=== PATIENT | male | born 1945 | race Caucasian/White ===

== ENCOUNTER 2019-09-15 10:57 | Outpatient (CLI) | payer MEDICARE, OTHER, SELFPAY ==
--- NOTE | ~2019-09-15 | XR_ITS ---
XR ankle LT min 3V DATE: 09/15/2019 11:50 INDICATION: Twisting injury 3 weeks ago. Left ankle pain and swelling. TECHNIQUE: 4 views COMPARISON: None FINDINGS: Prominent plantar calcaneal enthesopathy. There is soft tissue swelling of the ankle, greater laterally. No fracture or dislocation of the ankl e or disruption of the ankle mortise. No periosteal reaction or bone destruction. IMPRESSION: Ankle soft tissue swelling Plantar calcaneal enthesopathy Reviewed, dictated and finalized at location A.
[2019-09-15 11:13] LABS: Basophils Absolute Auto 0.03 K/mm3 (0.00-0.10); Basophils Percent Auto 0.6 % (0.0-1.0); Eosinophils Absolute Auto 0.23 K/mm3 (0.02-0.50); Eosinophils Percent Auto 4.8 % (1.0-6.0); Hematocrit 39.8 % (37.0-46.0); Hemoglobin 13.5 g/dL (12.4-15.3); Immature Granulocyte Absolute 0.01 K/mm3 (0.00-0.00); Immature Granulocyte Percent A 0.2 % (0.0-0.0); Lymphocytes Absolute Auto 1.61 K/mm3 (1.10-4.50); Lymphocytes Percent Auto 33.5 % (18.0-42.0); Mean Corpuscular HGB Conc 33.9 g/dL (32.0-36.0); Mean Corpuscular Hemoglobin 29.7 pg (27.0-31.0); Mean Corpuscular Volume 87.5 fL (78.0-102.0); Mean Platelet Volume 9.7 fl (8.7-11.0); Monocytes Absolute Auto 0.35 K/mm3 (0.10-0.90); Monocytes Percent Auto 7.3 % (2.0-11.0); Neutrophils Absolute Auto 2.6 K/mm3 (1.7-7.2); Neutrophils Percent Auto 53.6 % (50.0-70.0); Platelet Count Result 141 K/mm3 (150-420); Red Blood Count 4.55 M/mm3 (4.70-6.10); Red Cell Distribution Width 12.5 % (11.6-14.4); White Blood Count 4.8 K/mm3 (4.8-10.8)
[2019-09-15 11:26] LABS: Anion Gap 11.6 mmol/L (7-16); Blood Urea Nitrogen 16 mg/dL (7-18); Calcium 9.5 mg/dL (8.5-10.1); Carbon Dioxide 29 mmol/L (21-32); Chloride 107 mmol/L (98-108); Estimated Glomerular Filt Rate > 60; Glucose 96 mg/dL (70-99); Osmolality Calculated 297 mOsm/kg (285-295); Potassium 4.6 mmol/L (3.5-5.1); Sodium 143 mmol/L (136-145); Uric Acid 5.2 mg/dL (3.5-7.2)
[2019-09-15 11:28] LABS: CRP < 0.2 mg/dL (0.0-0.9)
[2019-09-15 13:07] LABS: Erythrocyte Sedimentation Rate 30 mm/hr (0-20)
== END 2019-09-15 10:58 | disposition home or self-care (01) ==
PROVIDERS: PCP Internal Medicine; Visit Provider Internal Medicine
DX: M25.572 Pain in left ankle and joints of left foot (principal); M25.472 Effusion, left ankle
CPT/HCPCS: 36415; 73610; 80048; 84550; 85025; 85652; 86140

== ENCOUNTER 2019-12-23 10:57 | Outpatient (CLI) | payer MEDICARE, OTHER, SELFPAY ==
--- NOTE | ~2019-12-23 | US_ITS ---
EXAMINATION: US venous doppler [facility] EXAM DATE: 12/23/2019 11:44 INDICATION: left calf, foot swelling. TECHNIQUE: Multiple grayscale, color flow and Doppler images of the left lower extremity deep venous system were obtained and reviewed. There is no prior study for comparison. FINDINGS: The left common femoral, femoral and profunda veins demonstrate normal color flow, respirat ory variation, augmentation and compressibility. Compressibility, color flow confirmed within the le ft popliteal, posterior tibial, peroneal, and greater saphenous veins. IMPRESSION: No left lower extremity deep venous thrombosis. Reviewed, dictated and finalized at location A.
[2019-12-23 11:18] LABS: Basophils Absolute Auto 0.03 K/mm3 (0.00-0.10); Basophils Percent Auto 0.7 % (0.0-1.0); Eosinophils Absolute Auto 0.21 K/mm3 (0.02-0.50); Immature Granulocyte Absolute 0.01 K/mm3 (0.00-0.00); Immature Granulocyte Percent A 0.2 % (0.0-0.0); Lymphocytes Absolute Auto 1.46 K/mm3 (1.10-4.50); Lymphocytes Percent Auto 34.6 % (18.0-42.0); Mean Corpuscular HGB Conc 33.3 g/dL (32.0-36.0); Mean Corpuscular Hemoglobin 29.3 pg (27.0-31.0); Mean Corpuscular Volume 87.8 fL (78.0-102.0); Mean Platelet Volume 10.1 fl (8.7-11.0); Monocytes Absolute Auto 0.33 K/mm3 (0.10-0.90); Monocytes Percent Auto 7.8 % (2.0-11.0); Neutrophils Absolute Auto 2.2 K/mm3 (1.7-7.2); Neutrophils Percent Auto 51.7 % (50.0-70.0); Platelet Count Result 151 K/mm3 (150-420); Red Blood Count 4.44 M/mm3 (4.70-6.10); Red Cell Distribution Width 12.6 % (11.6-14.4); White Blood Count 4.2 K/mm3 (4.8-10.8)
[2019-12-23 11:34] LABS: Alanine Aminotransferase 31 U/L (16-63); Albumin Level 3.8 g/dL (3.4-5.0); Alkaline Phosphatase 70 U/L (46-116); Anion Gap 11.2 mmol/L (7-16); Aspartate Amino Transferase 27 U/L (15-37); Bilirubin,Total 0.8 mg/dL (0.00-1.00); Blood Urea Nitrogen 16 mg/dL (7-18); CRP 0.9 mg/dL (0.0-0.9); Calcium 8.9 mg/dL (8.5-10.1); Carbon Dioxide 29 mmol/L (21-32); Chloride 106 mmol/L (98-108); Estimated Glomerular Filt Rate > 60; Glucose 89 mg/dL (70-99); Osmolality Calculated 294 mOsm/kg (285-295); Potassium 4.2 mmol/L (3.5-5.1); Sodium 142 mmol/L (136-145); Total Protein 7.7 g/dL (6.4-8.2); Uric Acid 5.9 mg/dL (3.5-7.2)
[2019-12-23 12:26] LABS: Erythrocyte Sedimentation Rate 32 mm/hr (0-20)
== END 2019-12-23 10:58 | disposition home or self-care (01) ==
PROVIDERS: PCP Internal Medicine; Visit Provider Internal Medicine
DX: M79.89 Other specified soft tissue disorders (principal); M79.672 Pain in left foot; M79.662 Pain in left lower leg
CPT/HCPCS: 36415; 80053; 84550; 85025; 85652; 86140; 93971

== ENCOUNTER 2020-09-05 12:16 | Outpatient (CLI) | payer MEDICARE, OTHER, SELFPAY ==
--- NOTE | ~2020-09-05 | US_ITS ---
EXAMINATION: US carotid duplex BI DATE: 09/05/2020 12:46 INDICATION: Left carotid bruit. TECHNIQUE: Grayscale, color Doppler, and pulsed Doppler images of the cervical carotid arteries were obtained. The degree of vessel stenosis is placed in one of the following categories: normal, <50%, 5 0-69%, >=70% but less than near-occlusion, near-occlusion, or total occlusion. Note that percent sten osis relative to normal distal artery lumen diameter is indirectly measured from velocity measurement s as described by Tony, et al. Radiology 2003; 229:340-346. COMPARISON: None. FINDINGS: RIGHT: The right common carotid artery (CCA) peak systolic velocity (PSV) is 100 cm/s. The right internal ca rotid artery (ICA) PSV is 88 cm/s. The right ICA end-diastolic velocity (EDV) is 10 cm/s. The right I CA/CCA PSV ratio is 0.9. Grayscale and color Doppler images yield an estimate of <50% diameter reduct ion from plaque in the ICA. There is antegrade flow in the right vertebral artery. LEFT: The left CCA PSV is 76 cm/s. The left ICA PSV is 107 cm/s. The left ICA EDV is 18 cm/s. The left ICA/ CCA PSV ratio is 1.4. Grayscale and color Doppler images yield an estimate of <50% diameter reduction from plaque in the ICA. There is antegrade flow in the left vertebral artery. IMPRESSION: 1. <50% stenosis in the right internal carotid artery. 2. <50% stenosis in the left internal carotid artery. Reviewed, dictated and finalized at location A.
== END 2020-09-05 12:17 | disposition home or self-care (01) ==
LOC: CHSIMG 12:18
PROVIDERS: PCP Internal Medicine; Visit Provider Internal Medicine
DX: R09.89 Other specified symptoms and signs involving the circulatory and respiratory systems (principal)
CPT/HCPCS: 93880

== ENCOUNTER 2023-07-22 10:05 | Outpatient (CLI) | payer MEDICARE, OTHER, SELFPAY ==
--- NOTE | 2023-07-22 10:12 | ECHO_ITS ---
Patient Info Name: Darryl Salazar Age: 78 years : 1945 Gender: Male Ht: 70 in Wt: 165 lbs BSA: 1.93 m2 HR: 75 bpm BP: 170 / 95 mmHg Heart Rhythm: Sinus Rhythm Technical Quality: Good Exam Date: 07/22/2023 11:06 AM Exam Location: Echo Lab Patient Status: Outpatient Admit Date: 07/22/2023 Staff Ordering Physician: Davis Zelaya MD Ladle Cleaner: Jon St RDCS Attending Provider: Davis Zelaya MD Referring Physician: Garcia ASHLEY; Exam Type: CA echo doppler color flow Study Info Indications - ABN EKG Complete two-dimensional, color flow and Doppler transthoracic echocardiogram is performed. Summary 1. Complete two-dimensional, color flow and Doppler transthoracic echocardiogram is performed. 2. Left ventricular chamber dimension is normal. 3. Left ventricular systolic function is normal, estimated at 60-65%. 4. The left ventricular diastolic function is grade I diastolic dysfunction. 5. E/e' 21 is elevated. 6. There is mild aortic valve sclerosis. 7. There is trace mitral valve regurgitation. 8. There is mild tricuspid valve regurgitation. 9. No pulmonary hypertension, estimated pulmonary arterial systolic pressure is 36 mmHg. Left Ventricle E/e' 21 is elevated. Left ventricular chamber dimension is normal. Left ventricular systolic function is normal, estimated at 60-65%. The left ventricular diastolic function is grade I diastolic dysfunction. Right Ventricle Right ventricular systolic function is normal and with normal TAPSE 3.1 cm. Right ventricular chamber dimension is normal. Left Atria Left atrial chamber dimension is normal. Right Atria Right atrial chamber dimension is normal. Aortic Valve The aortic valve is trileaflet. There is mild aortic valve sclerosis. There is no aortic valve stenosis. There is no aortic valve regurgitation. Pulmonic Valve There is no pulmonic regurgitation. Mitral Valve There is no mitral valve stenosis. There is trace mitral valve regurgitation. Tricuspid Valve There is mild tricuspid valve regurgitation. No pulmonary hypertension, estimated pulmonary arterial systolic pressure is 36 mmHg. Pericardium/Pleural There is no pericardial effusion. Inferior Vena Cava Normal inferior vena cava with >50% collapse upon inspiration consistent with normal right atrial pressure, 5 mmHg. Aorta The aortic root size at the sinus of Valsalva is normal. Left Ventricular Outflow Tract Name Value Normal LVOT 2D LVOT Diameter 2.1 cm LVOT Doppler LVOT Peak Velocity 117 cm/s LVOT Peak Gradient 6 mmHg LVOT Mean Gradient 4 mmHg LVOT VTI 29 cm LVOT VTI/AV VTI Ratio 1.0 LVOT Stroke Volume 98 ml Pulmonic Valve Name Value Normal RVOT Doppler RVOT Peak Gradient 2 mmHg PV Doppler -----
== END 2023-07-22 10:06 | disposition home or self-care (01) ==
LOC: CHSIMG 10:08
PROVIDERS: PCP Internal Medicine; Visit Provider Internal Medicine
DX: R94.31 Abnormal electrocardiogram [ECG] [EKG] (principal); R01.1 Cardiac murmur, unspecified; I08.2 Rheumatic disorders of both aortic and tricuspid valves
CPT/HCPCS: 93306

== ENCOUNTER 2024-10-27 16:49 | Emergency (ER) | payer MEDICARE, OTHER, SELFPAY ==
--- NOTE | ~2024-10-27 | XR_ITS ---
3 VIEWS LUMBAR SPINE Ordering provider: Edy Rivera MD History: . lbp . Comparison: None. FINDINGS: VERTEBRAL BODIES: No visible fracture or subluxation. Degenerative changes of the spine. Mild dextros coliosis. DISK SPACES: Narrowing of the disc L3-L4, L4-L5 and L5-S1. SOFT TISSUES: Atherosclerotic changes of aorta. IMPRESSION: No acute osseous abnormality lumbar spine. Multilevel degenerative disc disease. Reviewed, dictated and finalized at location A.
[2024-10-27 16:49] VITALS: BP 181/85; PULSE 70; RESP 18; TEMP 37.3; O2SAT 94
--- NOTE | 2024-10-27 16:52 | ED_ITS ---
HPI - Back Pain/Injury General Chief Complaint: Back Pain/Injury Stated Complaint: back pain Time Seen by Provider: 10/27/24 16:52 Source: patient Mode of arrival: ambulatory Limitations: no limitations History of Present Illness HPI Narrative: Patient is a 79-year-old male with lower back pain for the past 3-4 days. No injury. He has been using crutches around the house to get around. He went to urgent care yesterday. He is here today for further evaluation and treatment. The pain is lower back. MD elicited complaint: back pain Pertinent past history: prior back pain Onset (ago): day(s) ( Three) Timing: constant Severity: moderate Pain scale (0-10): 6 Similar Symptoms Previously: Yes Quality: sharp Location: lumbar spine ( lower) Radiation: none Exacerbating factors: movement Relieving factors: immobilization Context: turning/twisting and bending Associated symptoms: denies other symptoms Treatments prior to arrival: NSAIDS and acetaminophen Work related injury: No Related Data Allergies Allergy/AdvReac Type Severity Reaction Status Date / Time No Known Allergies Allergy Verified 10/27/24 16:57 Review of Systems Review of Systems: All systems reviewed & are unremarkable except as noted in HPI and below Constitutional: Constitutional: Reports no additional constitutional complaints Eyes: Eyes: Reports no additional eye complaints ENT: Reports system reviewed and no additional complaints, except as documented Cardiovascular: Cardiovascular: Reports no additional cardiovascular complaints Respiratory: Respiratory: Reports no additional respiratory complaints Gastrointestinal: Gastrointestinal: Reports no additional gastrointestinal complaints Genitourinary: Genitourinary: Reports no additional male genitourinary complaints Musculoskeletal: Musculoskeletal: Reports no additional musculoskeletal complaints Integumentary/Breasts: Skin/Breast: Reports system reviewed and no additional complaints, except as docu Neurologic: Reports system reviewed and no additional complaints, except as documented Psychiatric: Psychiatric: Reports no additional psychiatric complaints Endocrine: Endocrine: Reports no additional endocrine complaints Hematologic/Lymphatic: Hematologic/Lymphatic: Reports no additional hematologic/lymphatic complaints Allergic/Immunologic: Allergic/Immunologic: Reports no additional allergic/immunologic complaints Exam Const: General: healthy appearing Nutritional Appearance: well nourished Orientation/consciousness: patient oriented x3 HENMT: Head: normal to inspection Ears: external ears normal Face/Nose/Sinus: Normal external nose present Eyes: Conjunctivae: conjunctivae normal Pupils: Equal, round and reactive pupils present EOM: EOMs intact bilaterally Neck: Neck: normal visual inspection Chest: Chest palpation & inspection: normal inspection of the chest Resp: Effort & Inspection: normal respiratory effort and not labored Auscultation: clear to auscultation bilaterally and no crackles Cardio: Rate: regular rate Rhythm: regular rhythm Heart sounds: no murmurs GI: Inspection: non-distended GI Palp: Yes Soft to palpation and No Tenderness to palpation present (GI) Auscultation: normal bowel sounds : General: Yes bladder normal to palpation Back/Spine/Pelvis: Back: no CVA tenderness Other: tender lower L4-L5 and L5-S1 region of the paraspinal muscles to palpation; suspect muscle spasms Skin: General skin exam: normal color Rashes: no rashes Wounds: no wounds Neuro: General: patient oriented x3 Cranial nerves: Yes Nystagmus not present Speech: normal speech Gait exam (Neuro): Normal gait present Extrem: General: normal to inspection Psych: Mental Status: mental status grossly normal Affect: normal affect Attitude: cooperative Course Vital Signs Vital signs: Vital Signs Temperature 37.3 C 10/27/24 16:49 Pulse Rate 70 10/27/24 16:49 Respiratory Rate 18 10/27/24 16:49 Blood Pressure 181/85 H 10/27/24 16:49 Pulse Oximetry 94 10/27/24 16:49 Oxygen Delivery Room Air 10/27/24 16:49 Temperature 37.3 C 10/27/24 16:49 Pulse Rate 58 L 10/27/24 18:30 Respiratory Rate 17 10/27/24 18:30 Blood Pressure 167/78 H 10/27/24 18:30 Pulse Oximetry 95 10/27/24 18:30 Oxygen Delivery Room Air 10/27/24 16:49 MDM - Back Pain/Injury MDM Narrative Medical decision making narrative: patient is a 79-year-old male with lower back pain for the past few days. He is here for further evaluation. We will get an x-ray. We will do Toradol. We will road test patient after feeling better. UA. Lab Data Attestation: I reviewed the patient's lab results. Lab results narrative: Urinalysis was negative for acute process Labs: Lab Results 10/27/24 Range/Units 18:10 Urine Color Light yellow (Yellow) Urine Appearance Clear (Clear) Urine pH 6.0 (5.0-8.0) Ur Specific [place] 1.010 (1.010-1.020) Urine Protein Negative (Negative) Urine Glucose (UA) Negative (Negative) Urine Ketones 1+ H (Negative) Ur Blood (Man) Negative (Negative) Urine Nitrate Negative (Negative) Urine Bilirubin Negative (Negative) Urine Urobilinogen 0.2 (0.2-1.0) mg/dL Leukocyte Esterase Rfl Negative (Negative) ROMMEL/UL Imaging Data Attestation: I personally reviewed and interpreted this imaging study as follows: Radiologist's impression: lumbar spine is negative for acute process Discharge Plan Discharge Clinical Impression: Lumbar radiculopathy Strain of lumbar region Qualifiers: Encounter type: initial encounter Qualified Code(s): S39.012A - Strain of muscle, fascia and tendon of lower back, initial encounter Patient Disposition: Home Condition: Stable Instructions: Sciatica (ED), Acute Low Back Pain (ED) Patient Language: Turkish Prescriptions: New prednisone 20 mg tablet 40 mg PO DAILY 3 Days Qty: 6 0RF hydrocodone-acetaminophen 5-325 mg tablet 1 tablet PO Q8H PRN (Reason: pain) Qty: 20 0RF Follow-up/Referrals: Davis Zelaya MD [Primary Care Provider] - Time of Disposition: 19:18
--- OUTSIDE RECORDS SUMMARY | 2024-10-27 16:52 | XMS_ITS | Continuity of Care Document ---
Author Organization [facility] Address [address] [place] [address] [place] [address] Phone Care Team Providers Care Zigzag Elastic Attacher Name Role Phone Gokul Dias MD Unavailable Unavailable Allergies, Adverse Reactions, Alerts Substance Reaction Status Criticality No Known Allergies Active No Inform ation Medications Medication Instructions Dosage Effective Dates (start - stop) Status Comments metformin 2000 mg ORAL TABLET - Active glimepiride 2 mg tablet take 1 tablet by oral route every day 2 MG - Active Procedures Procedure Date Fundus Photography W/ Report Refraction Eye Exam, New Patient Advance Directives Directive Yes / No Effective Date File Name No Information Encounters Encounter Description Practice Location Reason(s) For Visit Diagnoses Date Provider Providers Copied on Encounter [facility], [address] [place] [address] [address], [place], [place], [id number], [place] tel:[phone] [place] Professional CLIP RIVETER Complete Exam (chief complaint) Age-related nuclear cataract, bilateralType 2 diabetes mellitus without complicationsV itreous degeneration, left eyeAmblyopia of left eye 0 Arun Hodgson. [address], [facility] [place] A, [place], [place], [id number], [place]. tel:[phone] Referring Provider: Gokul Calix, [address], [place], [address] . tel:[phone] Family History Family Member Type Diagnosis Age At Onset No Information Payers Payer name Insurance type Covered green party ID Authoriza tion(s) Medicare [place] MB [id number] [facility] [id number] Social History Type Description Quantity Date Captured Comments Alcohol Use Details Caffeine Use Details Tobacco Use Status Current non-smoker 20 Smoking Status Never smoker Non-Smoking Tobacco Use Details : No Details Available : No Details Available Sex Male Chief Complaint And Reason For Visit From encounter dated '11/17/2019 08:15'. CLIP RIVETER Complete Exam (chief complaint). Description: The 74 year old male presents for evaluation of NPComplete Exam in the right eye and left eye. Hx Amblyopia OS, Strabismus. DM2, last A1c around 7.0,last tested 3-4 months ago, BS unknown, followed by Dr. Zelaya. Pt reports overall stable vision in current spec Rx. Pt reports OS feels like it is pulling out a little. Pt reports floaters OS when he looks up, but denies flashes and dark curtains OU. Reason For Referral Reason For Referral No Information Plan Of Treatment Date Type Action Status Patient Education Type 2 Diabetes: Care I nstructions completed History Of Present Illness Encounter Date Complaint History Of Prese nt Illness CLIP RIVETER Complete Exam The 74 year old male presents for evaluation of CLIP RIVETER Complete Exam in the right eye and left eye. Hx Amblyopia OS, Strabismus. DM2, last A1c around 7.0, last tested 3-4 months ago, BS unknown, followed by Dr. Zelaya. Pt reports overall stable vision in current spec Rx. Pt reports OS feels like it is pulling out a little. Pt reports floaters OS when he looks up, but denies flashes and dark curtains OU. Functional Status Date Functional Assessmen t No Information Instructions Date Instruction Additional Infor mation Impression/Plan Assessments Type Assessment Date assessment Age-related nuclear cataract, bi lateral assessment Type 2 diabetes mellitus without complications assessment Vitreous degeneration, left eye assessment Amblyopia of left eye 0 Patient Care Teams Name Effective Dates (start - stop) Status Members No Information
--- OUTSIDE RECORDS SUMMARY | 2024-10-27 16:52 | XMS_ITS | Clinical Summary ---
Author Organization [facility] Address [address] [place] [address] Phone Care Team Providers Care Executive Officer Special Warfare Team Name Role Phone Davis Zelaya MD Primary Care Provider + Allergies No known active allergies Medications metFORMIN (GLUCOPHAGE) 500 mg tablet Take 500 mg by mouth daily after supper. Active glimepiride (AMARYL) 2 mg tablet Take 2 mg by mouth daily with breakfast. 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 Social History Tobacco Use Types Packs/Day Years Used Date Smoking Tobacco: Never Smokeless Tobacco: Never Alcohol Use Standard Drinks/Week Comments Yes 0 (1 standard drink = 0.6 oz pur e alcohol) OCC BEER Sex and Gender Information Value Date Recorded Sex Assigned at Not on file Legal Sex Male 10:01 AM CDT Gender Identity Not on file Sexual Orientation Not on file Last Filed Vital Signs Vital Sign Reading Time Taken Comments Blood Pressure 168/73 05/12/2021 5:46 PM TRIAL EXAMINER Pulse 80 05/12/2021 5:46 PM TRIAL EXAMINER Temperature 36.3 C (97.4 F) 05/12/2021 5:46 PM TRIAL EXAMINER Respiratory Rate 16 05/12/2021 5:46 PM TRIAL EXAMINER Oxygen Saturation 97% 05/12/2021 5:46 PM TRIAL EXAMINER Inhaled Oxygen Concentration - - Weight 78.7 kg (173 lb 6.4 oz) 05/12/2021 12:42 PM TRIAL EXAMINER Height 177.8 cm (5' 10) 05/12/2021 12:42 PM TRIAL EXAMINER Body Mass Index 24.88 05/12/2021 12:42 PM TRIAL EXAMINER Plan of Treatment Health Maintenance Due Date Last Done Comments DTAP/TDAP/TD VACCINES (1 - Tdap) 1966 PNEUMOCOCCAL VACCINE 50+ YEARS (1 of 1 - PCV) 01/22/19 97 ZOSTER VACCINE (1 of 2) 1997 RSV VACCINE (60+ or ) (1 - 1-dose 75+ series) 2022 INFLUENZA VACCINE (#1) 2023 Medical Devices Implanted Type Area Diesel Truck Crane Operator Device Identifier Shelf Expiration Date Model / Serial / Lot Pin And 2 Screws Right: Hip Insurance MEDICARE PART A AND B [facility] [place] [address] Advance Directives For more information, please contact: [phone] * Full Code (Latest Code Status on File) Date Activated Date Inactivated Comments 05/12/2021 12:57 PM 05/12/2021 8:00 PM Care Teams Executive Officer Special Warfare Team Relationship Specialty Start Date End Date Davis Zelaya MD [address] [place] [address] PCP - General Internal Medicine 02/14/21
--- OUTSIDE RECORDS SUMMARY | 2024-10-27 16:52 | XMS_ITS | Clinical Summary ---
Author Organization [facility] [address] [facility] Address [address] [place] [address] Care Team Providers Care Turning Lathe Tender Name Role Phone Davis Zelaya MD Primary Care Provider [phone] Social History Tobacco Use Types Packs/Day Years Used Date Smoking Tobacco: Never Assessed Personal Safety Answer Date Recorded Getting School Help Needed Not on file 05/27 Sex and Gender Information Value Date Recorded Sex Assigned at Not on file Legal Sex Male 3:24 PM CDT Gender Identity Not on file Sexual Orientation Not on file Plan of Treatment Not on file Insurance MEDICARE [facility] [place] [address] Care Teams Turning Lathe Tender Relationship Specialty Start Date End Date Davis Zelaya MD [address] [place], [place] [id number] PCP - General Internal Medicine 02/15/21
--- OUTSIDE RECORDS SUMMARY | 2024-10-27 16:52 | XMS_ITS | Referral Summary ---
Author Organization [facility] [address] [facility] Address [address] [place] [address] Care Team Providers Care Regional Ehs Manager Name Role Phone Davis Zelaya MD Primary Care Provider [phone] Social History Tobacco Use Types Packs/Day Years Used Date Smoking Tobacco: Never Assessed Personal Safety Answer Date Recorded Getting School Help Needed Not on file 05/27 Sex and Gender Information Value Date Recorded Sex Assigned at Not on file Legal Sex Male 3:24 PM CDT Gender Identity Not on file Sexual Orientation Not on file Plan of Treatment Not on file Insurance MEDICARE [facility] [place] [address] Care Teams Regional Ehs Manager Relationship Specialty Start Date End Date Davis Zelaya MD [address] [place], [place] [id number] PCP - General Internal Medicine 02/15/21
[2024-10-27 17:00] VITALS: BP 166/81; PULSE 64; RESP 18; O2SAT 98
--- NOTE | 2024-10-27 17:13 | PC.NURSE ---
Patient taken down to radiology
[2024-10-27 17:30] VITALS: BP 170/78; PULSE 62; RESP 17; O2SAT 96
--- OUTSIDE RECORDS SUMMARY | 2024-10-27 17:31 | XMS_ITS | Continuity of Care Document ---
Author Organization [facility] Address [address] [place] [address] [place] [address] Phone Care Team Providers Care Real Estate Sales Supervisor Name Role Phone Gokul Dias MD Unavailable [...] Diagnoses Date Provider Providers Copied on Encounter [facility], [address] [place] [address] [address], [place], [place], [id number], [place] tel:[phone] [place] Professional WINDOW CLEANER Complete Exam (chief complaint) Age-related nuclear cataract, bilateralType 2 diabetes mellitus without complicationsV itreous degeneration, left eyeAmblyopia of left eye 0 Arun Hodgson. [address], [facility] [address], [place], [place], [id number], [place]. tel:[phone] Referring Provider: Gokul Calix, [address], [place], [address] . tel:[phone] Family History Family Member Type Diagnosis Age At Onset No Information Payers Payer name Insurance type Covered democrat ID Authoriza tion(s) [place] [id number] [facility] [id number] Social History Type Description Quantity Date Captured Comments Alcohol Use Details Caffeine Use Details Tobacco Use Status Current non-smoker 20 Smoking Status Never smoker Non-Smoking Tobacco Use Details : No Details Available : No Details Available Sex Male Chief Complaint And Reason For Visit From encounter dated '11/17/2019 08:15'. WINDOW CLEANER Complete Exam (chief complaint). Description: The 74 [...] Date Complaint History Of Prese nt Illness WINDOW CLEANER Complete Exam The 74 year old male presents for evaluation of WINDOW CLEANER Complete Exam in the right eye and [...]
--- OUTSIDE RECORDS SUMMARY | 2024-10-27 17:31 | XMS_ITS | Clinical Summary ---
Author Organization [facility] Address [address] [facility] [place] [address] Phone Care Team Providers Care Broadcast Program Director Name Role Phone Davis Zelaya MD Primary [...] Comments Blood Pressure 168/73 05/12/2021 5:46 PM DIRECTOR OF ENGINEERING Pulse 80 05/12/2021 5:46 PM DIRECTOR OF ENGINEERING Temperature 36.3 C (97.4 F) 05/12/2021 5:46 PM DIRECTOR OF ENGINEERING Respiratory Rate 16 05/12/2021 5:46 PM DIRECTOR OF ENGINEERING Oxygen Saturation 97% 05/12/2021 5:46 PM DIRECTOR OF ENGINEERING Inhaled Oxygen Concentration - - Weight 78.7 kg (173 lb 6.4 oz) 05/12/2021 12:42 PM DIRECTOR OF ENGINEERING Height 177.8 cm (5' 10) 05/12/2021 12:42 PM DIRECTOR OF ENGINEERING Body Mass Index 24.88 05/12/2021 12:42 PM DIRECTOR OF ENGINEERING Plan of Treatment Health Maintenance Due Date Last Done Comments DTAP/TDAP/TD VACCINES (1 - Tdap) 1966 PNEUMOCOCCAL VACCINE 50+ YEARS (1 of 1 - PCV) 01/22/19 97 ZOSTER VACCINE (1 of 2) 1997 RSV VACCINE (60+ or ) (1 - 1-dose 75+ series) 2022 INFLUENZA VACCINE (#1) 2023 Medical Devices Implanted Type Area Director Trade Device Identifier Shelf Expiration Date Model / Serial / Lot Pin And 2 Screws Right: Hip Insurance MEDICARE PART A AND B [facility] [place] [address] Advance Directives For more information, please contact: [phone] * Full Code (Latest Code Status on File) Date Activated Date Inactivated Comments 05/12/2021 12:57 PM 05/12/2021 8:00 PM Care Teams Broadcast Program Director Relationship Specialty Start Date End Date Davis Zelaya MD [address] [place] [address] PCP - General Internal Medicine 02/14/21
--- OUTSIDE RECORDS SUMMARY | 2024-10-27 17:31 | XMS_ITS | Clinical Summary ---
Author Organization [facility] [address] [facility] Address [address] [place] [address] Care Team Providers Care Chronic Care Nurse Name Role Phone Davis Zelaya MD Primary Care Provider [phone] Social History Tobacco Use Types Packs/Day Years Used Date Smoking Tobacco: Never Assessed Personal Safety Answer Date Recorded Getting School Help Needed Not on file 05/27 Sex and Gender Information Value Date Recorded Sex Assigned at Not on file Legal Sex Male 3:24 PM CDT Gender Identity Not on file Sexual Orientation Not on file Plan of Treatment Not on file Insurance MEDICARE [facility] [place] [address] Care Teams Chronic Care Nurse Relationship Specialty Start Date End Date Davis Zelaya MD [address] [place], [place] [id number] PCP - General Internal Medicine 02/15/21
--- OUTSIDE RECORDS SUMMARY | 2024-10-27 17:31 | XMS_ITS | Referral Summary ---
Author Organization [facility] 163 [facility] Address [address] [place] [address] Care Team Providers Care Crab Meat Processor Name Role Phone Daivs Zelaya MD Primary Care Provider [phone] Social History Tobacco Use Types Packs/Day Years Used Date Smoking Tobacco: Never Assessed Personal Safety Answer Date Recorded Getting School Help Needed Not on file 05/27 Sex and Gender Information Value Date Recorded Sex Assigned at Not on file Legal Sex Male 3:24 PM CDT Gender Identity Not on file Sexual Orientation Not on file Plan of Treatment Not on file Insurance MEDICARE [facility] [place] [address] Care Teams Crab Meat Processor Relationship Specialty Start Date End Date Davis Zelaya MD [address], [place] [id number] PCP - General Internal Medicine 02/15/21
[2024-10-27] MEDS: KETOROLAC (*BKC) 60 MG/2 ML VIAL IM (17:37)
[2024-10-27 18:00] VITALS: BP 187/88; PULSE 83; RESP 17; O2SAT 96
[2024-10-27 18:26] LABS: Add Urine Microscopic? NO; Appearance Urine Clear (Clear); Bilirubin Urine Negative (Negative); Blood Urine Negative (Negative); Color Urine Light Yellow (Yellow); Glucose Urine UA Negative (Negative); Ketones Urine 1+ (Negative); Leukocyte Esterase Ur Negative LEU/UL (Negative); Nitrate Urine Negative (Negative); Protein Urine Negative (Negative); Urobilinogen Urine 0.2 mg/dL (0.2-1.0)
[2024-10-27 18:30] VITALS: BP 167/78; PULSE 58; RESP 17; O2SAT 95
--- NOTE | 2024-10-27 18:45 | PC.NURSE ---
ERP is aware of patient's blood pressure being elevated, Patient reports he didn't take his blood pressure medication this morning due to taking ibuprofen.
--- NOTE | 2024-10-27 18:56 | PC.NURSE ---
Patient reports pain is much better, rates 5/10. Patient was able to sit himself up and stand to the side of the bed without difficulty.
[2024-10-27] MEDS: HYDROcodone/acetaminophen (*CRX) 5-325 MG TABLET 1 TAB PO (19:18)
[2024-10-27] MEDS: predniSONE 20 MG TABLET 40 MG PO (19:18)
[2024-10-27 20:11] VITALS: BP 160/89; PULSE 68; RESP 20; O2SAT 96
== END 2024-10-27 20:11 | disposition home or self-care (01) ==
PROVIDERS: Emergency Provider Emergency Medicine; PCP Internal Medicine
DX: M54.16 Radiculopathy, lumbar region (principal); S39.012A Strain of muscle, fascia and tendon of lower back, initial encounter; X58.XXXA Exposure to other specified factors, initial encounter
CPT/HCPCS: 72100; 81003; 96372; 99283; A9270; J1885; J7512

== ENCOUNTER 2024-10-29 16:54 | Emergency (ER) | payer MEDICARE, OTHER, SELFPAY ==
--- OUTSIDE RECORDS SUMMARY | 2024-10-29 16:56 | XMS_ITS | Clinical Summary ---
Author Organization [facility] Address [address] [place] [address] Phone Care Team Providers Care Window And Siding Craftsman Name Role Phone Davis Zelaya MD Primary [...] Comments Blood Pressure 168/73 05/12/2021 5:46 PM ASSISTED SALES REPRESENTATIVE Pulse 80 05/12/2021 5:46 PM ASSISTED SALES REPRESENTATIVE Temperature 36.3 C (97.4 F) 05/12/2021 5:46 PM ASSISTED SALES REPRESENTATIVE Respiratory Rate 16 05/12/2021 5:46 PM ASSISTED SALES REPRESENTATIVE Oxygen Saturation 97% 05/12/2021 5:46 PM ASSISTED SALES REPRESENTATIVE Inhaled Oxygen Concentration - - Weight 78.7 kg (173 lb 6.4 oz) 05/12/2021 12:42 PM ASSISTED SALES REPRESENTATIVE Height 177.8 cm (5' 10) 05/12/2021 12:42 PM ASSISTED SALES REPRESENTATIVE Body Mass Index 24.88 05/12/2021 12:42 PM ASSISTED SALES REPRESENTATIVE Plan of Treatment Health Maintenance Due Date Last Done Comments DTAP/TDAP/TD VACCINES (1 - Tdap) 1966 PNEUMOCOCCAL VACCINE 50+ YEARS (1 of 1 - PCV) 01/22/19 97 ZOSTER VACCINE (1 of 2) 1997 RSV VACCINE (60+ or ) (1 - 1-dose 75+ series) 2022 INFLUENZA VACCINE (#1) 2023 Medical Devices Implanted Type Area Dumper Bailer Operator Device Identifier Shelf Expiration Date Model / Serial / Lot Pin And 2 Screws Right: Hip Insurance MEDICARE PART A AND B [facility] [address] Advance Directives For more information, please contact: [phone] * Full Code (Latest Code Status on File) Date Activated Date Inactivated Comments 05/12/2021 12:57 PM 05/12/2021 8:00 PM Care Teams Window And Siding Craftsman Relationship Specialty Start Date End Date Davis Zelaya MD [address] [place] [address] PCP - General Internal Medicine 02/14/21
--- OUTSIDE RECORDS SUMMARY | 2024-10-29 16:56 | XMS_ITS | Clinical Summary ---
Author Organization [facility] Address [address] [place] [address] Care Team Providers Care Hand Shoe Cutter Name Role Phone Davis Zelaya MD Primary Care Provider [phone] Social History Tobacco Use Types Packs/Day Years Used Date Smoking Tobacco: Never Assessed Personal Safety Answer Date Recorded Getting School Help Needed Not on file 05/27 Sex and Gender Information Value Date Recorded Sex Assigned at Not on file Legal Sex Male 3:24 PM CDT Gender Identity Not on file Sexual Orientation Not on file Plan of Treatment Not on file Insurance MEDICARE [facility] [place] [address] Care Teams Hand Shoe Cutter Relationship Specialty Start Date End Date Davis Zelaya MD [address] [place], [place] [id number] PCP - General Internal Medicine 02/15/21
--- OUTSIDE RECORDS SUMMARY | 2024-10-29 16:56 | XMS_ITS | Continuity of Care Document ---
Author Organization [facility] Address [address] [place] [address] [place] [address] Phone Care Team Providers Care Desktop Support Manager Name Role Phone Gokul Dias MD Unavailable [...] Diagnoses Date Provider Providers Copied on Encounter [facility], [address] [place] [address] [address], [place], [place], [id number], [place] tel:[phone] [place] Professional DEPUTY EDITOR IN CHIEF Complete Exam (chief complaint) Age-related nuclear cataract, bilateralType 2 diabetes mellitus without complicationsV itreous degeneration, left eyeAmblyopia of left eye 0 Arun Hodgson. [address], [facility] A, [place], [place], [address], [place]. tel:[phone] Referring Provider: Gokul Calix, [address], [place], [address] . tel:[phone] Family History Family Member Type Diagnosis Age At Onset No Information Payers Payer name Insurance type Covered republican ID Authoriza tion(s) [place] [id number] [facility] [id number] Social History Type Description Quantity Date Captured Comments Alcohol Use Details Caffeine Use Details Tobacco Use Status Current non-smoker 20 Smoking Status Never smoker Non-Smoking Tobacco Use Details : No Details Available : No Details Available Sex Male Chief Complaint And Reason For Visit From encounter dated '11/17/2019 08:15'. DEPUTY EDITOR IN CHIEF Complete Exam (chief complaint). Description: The 74 [...] Date Complaint History Of Prese nt Illness DEPUTY EDITOR IN CHIEF Complete Exam The 74 year old male presents for evaluation of DEPUTY EDITOR IN CHIEF Complete Exam in the right eye and [...]
--- OUTSIDE RECORDS SUMMARY | 2024-10-29 16:56 | XMS_ITS | Referral Summary ---
Author Organization [facility] 163 [facility] Address [address] [place] [address] Care Team Providers Care Centrifugal Drier Operator Name Role Phone Davis Zelaya MD Primary Care Provider [phone] Social History Tobacco Use Types Packs/Day Years Used Date Smoking Tobacco: Never Assessed Personal Safety Answer Date Recorded Getting School Help Needed Not on file 05/27 Sex and Gender Information Value Date Recorded Sex Assigned at Not on file Legal Sex Male 3:24 PM CDT Gender Identity Not on file Sexual Orientation Not on file Plan of Treatment Not on file Insurance MEDICARE [facility] [place] [address] Care Teams Centrifugal Drier Operator Relationship Specialty Start Date End Date Davis Zelaya MD [address] [place], [place] [id number] PCP - General Internal Medicine 02/15/21
[2024-10-29 17:11] VITALS: BP 165/86; PULSE 70; RESP 20; TEMP 36.9; O2SAT 95
[2024-10-29] MEDS: methylPREDNISolone ACETATE 40 MG/ML VIAL 80 MG IM (17:34)
--- NOTE | 2024-10-29 17:42 | ED_ITS ---
HPI - Back Pain/Injury General Chief Complaint: Back Pain/Injury Stated Complaint: back pain Time Seen by Provider: 10/29/24 16:57 Source: patient Mode of arrival: EMS Limitations: no limitations History of Present Illness HPI Narrative: This is a 79-year-old male with a chronic back pain recently here 2 days ago and treated for sciatica patient returns to the emergency room via EMS with left-sided sciatic pain. There is no saddle paresthesias has good range of motion is lower extremities with a negative straight leg raising test on the left does have some L5 left paravertebral tenderness with palpation otherwise no fever chills no shortness of breath no flank pain no dysuria or hematuria. MD elicited complaint: back pain Pertinent past history: prior back pain Onset (ago): day(s) Timing: intermittent Severity: moderate Pain scale (0-10): 6 Similar Symptoms Previously: Yes Quality: aching Location: lumbar spine Related Data Allergies Allergy/AdvReac Type Severity Reaction Status Date / Time No Known Allergies Allergy Verified 10/29/24 17:46 Review of Systems Review of Systems: All systems reviewed & are unremarkable except as noted in HPI and below PMFSH Past Medical History Medical History Chronic back pain Exam Const: General: healthy appearing, no acute distress and alert Nutritional Appearance: well nourished Orientation/consciousness: patient oriented x3 Limitations: no limitations Neck: Neck: normal visual inspection, no lymphadenopathy and no meningeal signs Chest: Chest palpation & inspection: normal inspection of the chest Resp: Effort & Inspection: normal respiratory effort Auscultation: clear to auscultation bilaterally Cardio: Rate: regular rate Rhythm: regular rhythm GI: GI Palp: Yes Soft to palpation Auscultation: normal bowel sounds : General: Yes bladder normal to palpation Urinary Catheter: Urinary Catheter: patent and draining Skin: General skin exam: normal color Rashes: no rashes Wounds: no wounds Neuro: General: patient oriented x3, moves all extremities, no meningeal signs and no focal motor deficits Extrem: Other: L4 left paravertebral tenderness with palpation with a negative straight leg raising test on the left Course Course Emergency Course: patient had lumbar x-rays performed which showed osteoarthritis, patient was treated with pain medication. Well discharge patient was given Depo-Medrol 80mg IM prior to discharge and will continue prednisone daily x5 days and advised patient to follow with his primary care physician for possible further workup with an MRI of lumbar spine. Vital Signs Vital signs: Vital Signs Temperature 36.9 C 10/29/24 17:11 Pulse Rate 70 10/29/24 17:11 Respiratory Rate 20 10/29/24 17:11 Blood Pressure 165/86 H 10/29/24 17:11 Pulse Oximetry 95 10/29/24 17:11 Oxygen Delivery Room Air 10/29/24 17:11 Temperature 36.9 C 10/29/24 17:11 Pulse Rate 70 10/29/24 17:11 Respiratory Rate 20 10/29/24 17:11 Blood Pressure 165/86 H 10/29/24 17:11 Pulse Oximetry 95 10/29/24 17:11 Oxygen Delivery Room Air 10/29/24 17:11 Critical Care Time Critical Care Time Critical Care Time: No Discharge Plan Discharge Clinical Impression: Sciatica Qualifiers: Laterality: left Qualified Code(s): M54.32 - Sciatica, left side Patient Disposition: Home Condition: Stable Instructions: Antibiotic Form, Sciatica (ED) Additional Instructions: Advised to take medication as prescribed and to follow with primary within next few days for further evaluation treatment. Patient Language: [place] Islander Prescriptions: New prednisone 20 mg tablet 20 mg PO DAILY 3 Days Qty: 3 0RF No Action prednisone 20 mg tablet 40 mg PO DAILY 3 Days Qty: 6 0RF hydrocodone-acetaminophen 5-325 mg tablet 1 tablet PO Q8H PRN (Reason: pain) Qty: 20 0RF Follow-up/Referrals: Davis Zelaya MD [Primary Care Provider] - Time of Disposition: 17:46
--- OUTSIDE RECORDS SUMMARY | 2024-10-29 17:49 | XMS_ITS | Clinical Summary ---
Author Organization [facility] 163 [facility] Address [address] [place] [address] Care Team Providers Care Plater Supervisor Name Role Phone Davis Zelaya MD Primary Care Provider [phone] Social History Tobacco Use Types Packs/Day Years Used Date Smoking Tobacco: Never Assessed Personal Safety Answer Date Recorded Getting School Help Needed Not on file 05/27 Sex and Gender Information Value Date Recorded Sex Assigned at Not on file Legal Sex Male 3:24 PM CDT Gender Identity Not on file Sexual Orientation Not on file Plan of Treatment Not on file Insurance MEDICARE [facility] [place] [address] Care Teams Plater Supervisor Relationship Specialty Start Date End Date Davis Zelaya MD [address] [place], [place] [id number] PCP - General Internal Medicine 02/15/21
--- OUTSIDE RECORDS SUMMARY | 2024-10-29 17:49 | XMS_ITS | Continuity of Care Document ---
Author Organization [facility] Address [address] [place] [address] [place] [address] Phone Care Team Providers Care Food General Manager Name Role Phone Gokul Dias MD [...] Diagnoses Date Provider Providers Copied on Encounter [facility], [address] [place] [address] [address], [place], [place], [id number], [place] tel:[phone] [place] Professional MEDICAL PARASITOLOGIST Complete Exam (chief complaint) Age-related nuclear cataract, bilateralType 2 diabetes mellitus without complicationsV itreous degeneration, left eyeAmblyopia of left eye 0 Arun Hodgson. [address], [facility] A, [place], [place], [address], [place]. tel:[phone] Referring Provider: Gokul Calix, [address], [place], [address] . tel:[phone] Family History Family Member Type Diagnosis Age At Onset No Information Payers Payer name Insurance type Covered green party ID Authoriza tion(s) Medicare [place] MB [id number] [facility] [id number] Social History Type Description Quantity Date Captured Comments Alcohol Use Details Caffeine Use Details Tobacco Use Status Current non-smoker 20 Smoking Status Never smoker Non-Smoking Tobacco Use Details : No Details Available : No Details Available Sex Male Chief Complaint And Reason For Visit From encounter dated '11/17/2019 08:15'. MEDICAL PARASITOLOGIST Complete Exam (chief complaint). Description: The 74 [...] Date Complaint History Of Prese nt Illness MEDICAL PARASITOLOGIST Complete Exam The 74 year old male presents for evaluation of MEDICAL PARASITOLOGIST Complete Exam in the right eye and [...]
--- OUTSIDE RECORDS SUMMARY | 2024-10-29 17:49 | XMS_ITS | Referral Summary ---
Author Organization [facility] 163 [facility] Address [address] [place] [address] Care Team Providers Care Training And Development Head Name Role Phone Davis Zelaya MD Primary Care Provider [phone] Social History Tobacco Use Types Packs/Day Years Used Date Smoking Tobacco: Never Assessed Personal Safety Answer Date Recorded Getting School Help Needed Not on file 05/27 Sex and Gender Information Value Date Recorded Sex Assigned at Not on file Legal Sex Male 3:24 PM CDT Gender Identity Not on file Sexual Orientation Not on file Plan of Treatment Not on file Insurance MEDICARE [facility] [place] [address] Care Teams Training And Development Head Relationship Specialty Start Date End Date Davis Zelaya MD [address] [place], [place] [id number] PCP - General Internal Medicine 02/15/21
--- OUTSIDE RECORDS SUMMARY | 2024-10-29 17:49 | XMS_ITS | Clinical Summary ---
Author Organization [facility] Address [address] [place] [address] Phone Care Team Providers Care Post Doctoral Researcher Name Role Phone Davis Zelaya MD Primary [...] Comments Blood Pressure 168/73 05/12/2021 5:46 PM IT PROJECT MANAGER Pulse 80 05/12/2021 5:46 PM IT PROJECT MANAGER Temperature 36.3 C (97.4 F) 05/12/2021 5:46 PM IT PROJECT MANAGER Respiratory Rate 16 05/12/2021 5:46 PM IT PROJECT MANAGER Oxygen Saturation 97% 05/12/2021 5:46 PM IT PROJECT MANAGER Inhaled Oxygen Concentration - - Weight 78.7 kg (173 lb 6.4 oz) 05/12/2021 12:42 PM IT PROJECT MANAGER Height 177.8 cm (5' 10) 05/12/2021 12:42 PM IT PROJECT MANAGER Body Mass Index 24.88 05/12/2021 12:42 PM IT PROJECT MANAGER Plan of Treatment Health Maintenance Due Date Last Done Comments DTAP/TDAP/TD VACCINES (1 - Tdap) 1966 PNEUMOCOCCAL VACCINE 50+ YEARS (1 of 1 - PCV) 01/22/19 97 ZOSTER VACCINE (1 of 2) 1997 RSV VACCINE (60+ or ) (1 - 1-dose 75+ series) 2022 INFLUENZA VACCINE (#1) 2023 Medical Devices Implanted Type Area Second Crusher Device Identifier Shelf Expiration Date Model / Serial / Lot Pin And 2 Screws Right: Hip Insurance MEDICARE PART A AND B [facility] [place] [address] Advance Directives For more information, please contact: [phone] * Full Code (Latest Code Status on File) Date Activated Date Inactivated Comments 05/12/2021 12:57 PM 05/12/2021 8:00 PM Care Teams Post Doctoral Researcher Relationship Specialty Start Date End Date Davis Zelaya MD [address] [place] [address] PCP - General Internal Medicine 02/14/21
== END 2024-10-29 17:59 | disposition home or self-care (01) ==
PROVIDERS: Emergency Provider Emergency Medicine; PCP Internal Medicine
DX: M54.32 Sciatica, left side (principal)
CPT/HCPCS: 96372; 99283; J1010

== ENCOUNTER 2024-11-11 15:11 | Outpatient (CLI) | payer MEDICARE, OTHER, SELFPAY ==
--- NOTE | ~2024-11-11 | XR_ITS ---
HISTORY: L Hip Pain COMPARISON: None TECHNIQUE: 2 views of the left hip along with an AP view of the pelvis FINDINGS: No acute fracture or dislocation is identified. Superior lateral sclerosis of the bilateral femoral acetabular joint spaces are present consistent wi th osteoarthritis. Degenerative disease within the visualized portion of the lower lumbar spine. Fecal stasis within the colon. Air within the rectum. Normal mineralization. Intramedullary nubia and screw detected within the right femur. IMPRESSION: Degenerative disease without acute fracture. Reviewed, dictated and finalized at location A.
[2024-11-11 15:33] LABS: Hematocrit 45.6 % (37.0-46.0); Mean Corpuscular HGB Conc 32.9 g/dL (32-36); Mean Corpuscular Hemoglobin 28.8 pg (27.0-31.0); Mean Corpuscular Volume 87.5 fL (78.0-102.0); Platelet Count Result 227 K/mm3 (150-420); Red Blood Count 5.21 M/mm3 (4.70-6.10); Red Cell Distribution Width 12.3 % (11.6-14.4); White Blood Count 10.5 K/mm3 (4.8-10.8)
[2024-11-11 15:50] LABS: Alanine Aminotransferase 38 U/L (6-50); Albumin Level 4.2 g/dL (3.5-5.1); Alkaline Phosphatase 350 U/L (38-126); Anion Gap 11 mmol/L (4-12); Aspartate Amino Transferase 37 U/L (17-59); Bilirubin,Total 1.4 mg/dL (0.2-1.3); Blood Urea Nitrogen 21 mg/dL (9-20); CRP 0.7 mg/dL (<1.0); Calcium 9.8 mg/dL (8.4-10.2); Carbon Dioxide 18 mmol/L (22-30); Chloride 111 mmol/L (98-107); Estimated Glomerular Filt Rate > 60; Glucose 129 mg/dL (65-110); Osmolality Calculated 295 mOsm/kg (285-295); Potassium 4.5 mmol/L (3.4-5.0); Sodium 140 mmol/L (137-145); Total Protein 7.5 g/dL (6.3-8.2)
--- OUTSIDE RECORDS SUMMARY | 2024-11-11 17:04 | XMS_ITS | Continuity of Care Document ---
Author Organization [facility] Address [address] [place] [address] [place] [address] Phone Care Team Providers Care Ham Sawyer Name Role Phone Gokul Dias MD Unavailable [...] Diagnoses Date Provider Providers Copied on Encounter [facility], [address] [place] [address] [address], [place], [place], [id number], [place] tel:[phone] [place] Professional GROCERY CHECKER Complete Exam (chief complaint) Age-related nuclear cataract, bilateralType 2 diabetes mellitus without complicationsV itreous degeneration, left eyeAmblyopia of left eye 0 Arun Hodgson. [address], [facility] A, [place], [place], [address], [place]. tel:[phone] Referring Provider: Gokul Calix, [address], [place], [address] . tel:[phone] Family History Family Member Type Diagnosis Age At Onset No Information Payers Payer name Insurance type Covered republican ID Authoriza tion(s) Medicare [place] MB [id number] [facility] [id number] Social History Type Description Quantity Date Captured Comments Alcohol Use Details Caffeine Use Details Tobacco Use Status Current non-smoker 20 Smoking Status Never smoker Non-Smoking Tobacco Use Details : No Details Available : No Details Available Sex Male Chief Complaint And Reason For Visit From encounter dated '11/17/2019 08:15'. GROCERY CHECKER Complete Exam (chief complaint). Description: The 74 [...] Date Complaint History Of Prese nt Illness GROCERY CHECKER Complete Exam The 74 year old male presents for evaluation of GROCERY CHECKER Complete Exam in the right eye and [...]
--- OUTSIDE RECORDS SUMMARY | 2024-11-11 17:04 | XMS_ITS | Clinical Summary ---
Author Organization [facility] 163 [facility] Address [address] [place] [address] Care Team Providers Care Quantitative Researcher Name Role Phone Davis Zelaya MD Primary Care Provider [phone] Social History Tobacco Use Types Packs/Day Years Used Date Smoking Tobacco: Never Assessed Personal Safety Answer Date Recorded Getting School Help Needed Not on file 05/27 Sex and Gender Information Value Date Recorded Sex Assigned at Not on file Legal Sex Male 3:24 PM CDT Gender Identity Not on file Sexual Orientation Not on file Plan of Treatment Not on file Insurance MEDICARE [facility] [place] [address] Care Teams Quantitative Researcher Relationship Specialty Start Date End Date Davis Zelaya MD [address] [place], [place] [id number] PCP - General Internal Medicine 02/15/21
--- OUTSIDE RECORDS SUMMARY | 2024-11-11 17:04 | XMS_ITS | Clinical Summary ---
Author Organization [facility] Address [address] [facility] [place] [address] Phone Care Team Providers Care Newscast Producer Name Role Phone Davis Zelaya MD Primary [...] Comments Blood Pressure 168/73 05/12/2021 5:46 PM MACHINE TOOL TECHNICIAN INSTRUCTOR Pulse 80 05/12/2021 5:46 PM MACHINE TOOL TECHNICIAN INSTRUCTOR Temperature 36.3 C (97.4 F) 05/12/2021 5:46 PM MACHINE TOOL TECHNICIAN INSTRUCTOR Respiratory Rate 16 05/12/2021 5:46 PM MACHINE TOOL TECHNICIAN INSTRUCTOR Oxygen Saturation 97% 05/12/2021 5:46 PM MACHINE TOOL TECHNICIAN INSTRUCTOR Inhaled Oxygen Concentration - - Weight 78.7 kg (173 lb 6.4 oz) 05/12/2021 12:42 PM MACHINE TOOL TECHNICIAN INSTRUCTOR Height 177.8 cm (5' 10) 05/12/2021 12:42 PM MACHINE TOOL TECHNICIAN INSTRUCTOR Body Mass Index 24.88 05/12/2021 12:42 PM MACHINE TOOL TECHNICIAN INSTRUCTOR Plan of Treatment Health Maintenance Due Date Last Done Comments DTAP/TDAP/TD VACCINES (1 - Tdap) 1966 PNEUMOCOCCAL VACCINE 50+ YEARS (1 of 1 - PCV) 01/22/19 97 ZOSTER VACCINE (1 of 2) 1997 RSV VACCINE (60+ or ) (1 - 1-dose 75+ series) 2022 INFLUENZA VACCINE (#1) 2023 Medical Devices Implanted Type Area Clothing Presser Device Identifier Shelf Expiration Date Model / Serial / Lot Pin And 2 Screws Right: Hip Insurance MEDICARE PART A AND B [facility] [place] [address] Advance Directives For more information, please contact: [phone] * Full Code (Latest Code Status on File) Date Activated Date Inactivated Comments 05/12/2021 12:57 PM 05/12/2021 8:00 PM Care Teams Newscast Producer Relationship Specialty Start Date End Date Davis Zelaya MD [address] [place] [address] PCP - General Internal Medicine 02/14/21
--- OUTSIDE RECORDS SUMMARY | 2024-11-11 17:04 | XMS_ITS | Referral Summary ---
Author Organization [facility] 163 [facility] Address [address] [place] [address] Care Team Providers Care Director Career Name Role Phone Davis Zelaya MD Primary Care Provider [phone] Social History Tobacco Use Types Packs/Day Years Used Date Smoking Tobacco: Never Assessed Personal Safety Answer Date Recorded Getting School Help Needed Not on file 05/27 Sex and Gender Information Value Date Recorded Sex Assigned at Not on file Legal Sex Male 3:24 PM CDT Gender Identity Not on file Sexual Orientation Not on file Plan of Treatment Not on file Insurance MEDICARE [facility] [place] [address] Care Teams Director Career Relationship Specialty Start Date End Date Davis Zelaya MD [address] [place], [place] [id number] PCP - General Internal Medicine 02/15/21
== END 2024-11-11 15:12 | disposition home or self-care (01) ==
LOC: CHSLAB 15:14
PROVIDERS: PCP Internal Medicine; Visit Provider Internal Medicine
DX: D64.9 Anemia, unspecified (principal); M25.552 Pain in left hip
CPT/HCPCS: 36415; 73502; 80053; 85027; 86140

== ENCOUNTER 2024-12-07 10:43 | Outpatient (CLI) | payer MEDICARE, OTHER, SELFPAY ==
--- OUTSIDE RECORDS SUMMARY | 2024-12-07 10:49 | XMS_ITS | Referral Summary ---
Author Organization [facility] [place] 163 [facility] Address [address] [place] [address] Care Team Providers Care Dye Weigher Name Role Phone Davis Zelaya MD Primary Care Provider [phone] Social History Tobacco Use Types Packs/Day Years Used Date Smoking Tobacco: Never Assessed Personal Safety Answer Date Recorded Getting School Help Needed Not on file 05/27 Sex and Gender Information Value Date Recorded Sex Assigned at Not on file Legal Sex Male 3:24 PM CDT Gender Identity Not on file Sexual Orientation Not on file Plan of Treatment Not on file Insurance MEDICARE [facility] [place] [place] [address] Care Teams Dye Weigher Relationship Specialty Start Date End Date Davis Zelaya MD [address] [place], [place] [id number] PCP - General Internal Medicine 02/15/21
--- OUTSIDE RECORDS SUMMARY | 2024-12-07 10:49 | XMS_ITS | Clinical Summary ---
Author Organization [facility] [place] Address [address] [place] [address] Care Team Providers Care Information Technology Advisor Name Role Phone Davis Zelaya MD Primary Care Provider [phone] Social History Tobacco Use Types Packs/Day Years Used Date Smoking Tobacco: Never Assessed Personal Safety Answer Date Recorded Getting School Help Needed Not on file 05/27 Sex and Gender Information Value Date Recorded Sex Assigned at Not on file Legal Sex Male 3:24 PM CDT Gender Identity Not on file Sexual Orientation Not on file Plan of Treatment Not on file Insurance MEDICARE [facility] Member Subscriber Plan / Payer (Ef fective 2018-Present) Name:Marie Darryl Relation to Subscriber:Self Name:Marie Darryl Payer ID:[id number] Group ID:Not on file Type:[employer] Address: [address] [place], [place] [address] [place] [address] Care Teams Information Technology Advisor Relationship Specialty Start Date End Date Davis Zelaya MD [address] [place], [place] [id number] PCP - General Internal Medicine 02/15/21
--- OUTSIDE RECORDS SUMMARY | 2024-12-07 10:49 | XMS_ITS | Clinical Summary ---
Author Organization [facility] Address [address] [place] [address] Phone Care Team Providers Care Abstract Manager Name Role Phone Davis Zelaya MD [...] Comments Blood Pressure 168/73 05/12/2021 5:46 PM OPTICAL BRIGHTENER MAKER HELPER Pulse 80 05/12/2021 5:46 PM OPTICAL BRIGHTENER MAKER HELPER Temperature 36.3 C (97.4 F) 05/12/2021 5:46 PM OPTICAL BRIGHTENER MAKER HELPER Respiratory Rate 16 05/12/2021 5:46 PM OPTICAL BRIGHTENER MAKER HELPER Oxygen Saturation 97% 05/12/2021 5:46 PM OPTICAL BRIGHTENER MAKER HELPER Inhaled Oxygen Concentration - - Weight 78.7 kg (173 lb 6.4 oz) 05/12/2021 12:42 PM OPTICAL BRIGHTENER MAKER HELPER Height 177.8 cm (5' 10) 05/12/2021 12:42 PM OPTICAL BRIGHTENER MAKER HELPER Body Mass Index 24.88 05/12/2021 12:42 PM OPTICAL BRIGHTENER MAKER HELPER Plan of Treatment Health Maintenance Due Date Last Done Comments DTAP/TDAP/TD VACCINES (1 - Tdap) 1966 PNEUMOCOCCAL VACCINE 50+ YEARS (1 of 1 - PCV) 01/22/19 97 ZOSTER VACCINE (1 of 2) 1997 RSV VACCINE (60+ or ) (1 - 1-dose 75+ series) 2022 INFLUENZA VACCINE (#1) 2024 Medical Devices Implanted Type Area Building Carpenter Device Identifier Shelf Expiration Date Model / Serial / Lot Pin And 2 Screws Right: Hip Insurance MEDICARE PART A AND B [facility] [place] [address] Advance Directives For more information, please contact: [phone] * Full Code (Latest Code Status on File) Date Activated Date Inactivated Comments 05/12/2021 12:57 PM 05/12/2021 8:00 PM Care Teams Abstract Manager Relationship Specialty Start Date End Date Davis Zelaya MD [address] [place] [address] PCP - General Internal Medicine 02/14/21
--- OUTSIDE RECORDS SUMMARY | 2024-12-07 10:49 | XMS_ITS | Continuity of Care Document ---
Author Organization [facility] Address [address] [place] [address] [place] [address] Phone Care Team Providers Care Mixing House Operator Name Role Phone Gokul Dias MD Unavailable Unavailable Allergies, Adverse Reactions, Alerts Substance Reaction Status Criticality No Known Allergies Active No Inform ation Medications Medication Instructions Dosage Effective Dates (start - stop) Status Comments glimepiride 2 mg tablet take 1 tablet by oral route every day 2 MG - Active metformin 2000 mg ORAL TABLET - Active Procedures Procedure Date Fundus Photography W/ Report Refraction Eye Exam, New Patient Advance Directives Directive Yes / No Effective Date File Name No Information Encounters Encounter Description Practice Location Reason(s) For Visit Diagnoses Date Provider Providers Copied on Encounter [facility], [address] [place] [address] [address], [place], [place], [id number], [place] tel:[phone] [place] Professional SYSTEMS OPERATOR Complete Exam (chief complaint) Age-related nuclear cataract, bilateralType 2 diabetes mellitus without complicationsV itreous degeneration, left eyeAmblyopia of left eye 0 Arun Hodgson. [address], [facility] [address], [place], [place], [id number], [place]. tel:[phone] Referring Provider: Gokul Calix, [address], [place], [address] . tel:[phone] Family History Family Member Type Diagnosis Age At Onset No Information Payers Payer name Insurance type Covered republican ID Authoriza tion(s) Medicare [place] [id number] [facility] [id number] Social History Type Description Quantity Date Captured Comments Alcohol Use Details Caffeine Use Details Tobacco Use Status Current non-smoker 22 Smoking Status Never smoker Non-Smoking Tobacco Use Details : No Details Available : No Details Available Sex Male Chief Complaint And Reason For Visit From encounter dated '11/17/2019 08:15'. SYSTEMS OPERATOR Complete Exam (chief complaint). Description: The 74 [...] Date Complaint History Of Prese nt Illness SYSTEMS OPERATOR Complete Exam The 74 year old male presents for evaluation of SYSTEMS OPERATOR Complete Exam in the right eye and [...]
[2024-12-07 12:15] LABS: Alanine Aminotransferase 34 U/L (6-50); Albumin Level 3.8 g/dL (3.5-5.1); Alkaline Phosphatase 209 U/L (38-126); Anion Gap 5 mmol/L (4-12); Aspartate Amino Transferase 35 U/L (17-59); Bilirubin,Total 0.9 mg/dL (0.2-1.3); Blood Urea Nitrogen 12 mg/dL (9-20); CRP < 0.5 mg/dL (<1.0); Calcium 8.9 mg/dL (8.4-10.2); Carbon Dioxide 25 mmol/L (22-30); Chloride 109 mmol/L (98-107); Estimated Glomerular Filt Rate > 60; Glucose 62 mg/dL (65-110); Osmolality Calculated 285 mOsm/kg (285-295); Potassium 4.3 mmol/L (3.4-5.0); Sodium 139 mmol/L (137-145); Total Protein 6.7 g/dL (6.3-8.2)
[2024-12-07 12:40] LABS: GGT 23.2 U/L (15-73)
[2024-12-08 13:09] LABS: Alkaline Phosphatase 232 IU/L (44-121)
== END 2024-12-07 10:44 | disposition home or self-care (01) ==
LOC: CHSLAB 10:45
PROVIDERS: PCP Internal Medicine; Visit Provider Internal Medicine
DX: M25.552 Pain in left hip (principal); M54.16 Radiculopathy, lumbar region; D64.9 Anemia, unspecified; E78.2 Mixed hyperlipidemia
CPT/HCPCS: 36415; 80053; 82977; 84075; 84080; 85652; 86140

== ENCOUNTER 2024-12-17 07:44 | Outpatient (CLI) | payer MEDICARE, OTHER, SELFPAY ==
--- NOTE | ~2024-12-17 | MR_ITS ---
EXAMINATION: MR lumbar spine wo con, MR hip LT wo con DATE: 12/17/2024 08:57 INDICATION: Lumbar radiculopathy. Left hip pain. TECHNIQUE: 1. Magnetic resonance imaging (MRI) of the lumbar spine was performed without intravenous contrast. S equences included sagittal T2-weighted FSE, sagittal T2-weighted FS FSE, sagittal T1-weighted FSE, an d axial T2-weighted FSE. 2. MRI of the left hip was obtained without intravenous contrast. Sequences include large field-of-vi ew of the pelvis with axial T1-weighted FSE and axial and coronal PD-weighted FS FSE and small field- of-view axial, sagittal and coronal PD-weighted FS FSE of the left hip. COMPARISON: Left hip and pelvis radiographs dated 11/11/2024 and lumbar spine radiographs dated 10/28/19 25 FINDINGS: Lumbar spine: 10 degrees lumbar dextroscoliosis measured between T12 and L4 with mild compensatory levocurvature fr om L4 to S1. 3 mm retrolisthesis L5 on S1. One-2 mm retrolisthesis L1 on L2, L2 on L3 and L3 on L4. V ertebral body heights are normal. Mild disc height loss at L1-L2 through L4-L5 and moderate disc heig ht loss at L5-S1. Mild fibrovascular degenerative endplate changes posteriorly at L3-L4 posterior mar gin of the superior endplate of L3. The conus medullaris terminates at L1. There is normal signal in the caudal spinal cord. Normal appendix. Paravertebral soft tissues are unremarkable. The following d isc levels are specifically discussed: L1-L2: Disc is mildly bulging. There is mild bilateral facet joint osteoarthritis. There is mild bila teral neural foraminal stenosis. There is mild central canal stenosis. L2-L3: Disc is bulging. There is mild bilateral facet joint osteoarthritis. There is mild to moderate right and moderate left neural foraminal stenosis. There is mild central canal stenosis. L3-L4: Disc is bulging. There is mild right and moderate left facet joint osteoarthritis. There is mi ld to moderate right and moderate left neural foraminal stenosis. There is mild central canal stenosi s. L4-L5: Disc is bulging. There is moderate bilateral facet joint osteoarthritis. There is moderate rig ht and mild to moderate left neural foraminal stenosis. There is mild central canal stenosis. L5-S1: Disc is bulging with annular fissure and small central disc extrusion with disc protrusion ext ending 3 mm caudal to the level of the superior endplate of S1. There is moderate bilateral facet cintia nt osteoarthritis. There is mild left and moderate right neural foraminal stenosis. There is mild roni tral canal stenosis. Left hip and pelvis: There is marrow edema associated with a transverse fracture with 6 mm anterior displacement and 40 de grees anterior angulation of a transverse fracture across the inferior aspect of the L2 vertebral bod y. There is also marrow edema associated with a mildly displaced sagittal oriented fractures at both the left and right sacral ala. There is metallic magnetic field artifact associated with internal fix ation of the proximal right femur which is better appreciated on the prior radiographs. Fractures of the right superior and inferior pubic rami which appear subacute to chronic potentially still ununite d on the prior radiographs. Assessment for marrow edema is limited by loss of fat saturation resultin g from the adjacent metallic instrumentation. There is marrow edema at the superior aspect of the lef t pubic body suggesting acute nondisplaced fracture. Mild osteoarthritis of left hip with hypertrophic osteophytes replacing the superolateral to posterio r left acetabular labrum. No left hip joint effusion. There is likely reactive edema associated with the left pubic body fracture which extends laterally along some of the musculature left abductor musc ulature. Prominent sigmoid diverticulosis without adjacent inflammatory stranding to suggest divertic ulitis. Prostatomegaly. 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 IMPRESSION: 1. Recent sacral insufficiency fractures with transverse fracture across the inferior S2 vertebral sukhdeep dy and sagittal oriented fractures at the left and right sacral ala. 2. Additional relatively recent nondisplaced fracture at the left pubic body. 3. Likely prior subcutaneous to chronic and potentially still ununited fractures of the left superior and inferior pubic rami rami evaluation which is limited by metallic magnetic field artifact and poo r fat saturation related to metallic internal fixation at the proximal right femur. 4. Mild lumbar dextroscoliosis with moderate spondylosis. Reviewed, dictated and finalized at location A. IMPRESSION: 1. Recent sacral insufficiency fractures with transverse fracture across the in ferior S2 vertebral body and sagittal oriented fractures at the left and right sacral ala. 2. Additional relatively recent nondisplaced fracture at the left pubic body. 3. Likely prior subcutaneous to chronic and potentially still ununited fracture s of the left superior and inferior pubic rami rami evaluation which is limited by metallic magnetic field artifact and poor fat saturation related to metalli c internal fixation at the proximal right femur. 4. Mild lumbar dextroscoliosis with moderate spondylosis.
--- OUTSIDE RECORDS SUMMARY | 2024-12-17 07:48 | XMS_ITS | Referral Summary ---
Author Organization [facility] Address [address] [place] [address] Care Team Providers Care Health Promoter Name Role Phone Davis Zelaya MD Primary Care Provider [phone] Social History Tobacco Use Types Packs/Day Years [...] Treatment Not on file Insurance MEDICARE [facility] [employer] Business Plan Address: [address] [place], [place] [address] [place] [address] Care Teams Health Promoter Relationship Specialty Start Date End Date Davis Zelaya MD [address] [place], [place] [id number] PCP - General Internal Medicine 02/15/21
--- OUTSIDE RECORDS SUMMARY | 2024-12-17 07:48 | XMS_ITS | Clinical Summary ---
Author Organization [facility] [place] [address] [facility] Address [address] [place] [address] Care Team Providers Care Hr Administrator Name Role Phone Davis Zelaya MD Primary Care Provider [phone] Social History Tobacco Use Types Packs/Day Years [...] Treatment Not on file Insurance MEDICARE [facility] [address] Care Teams Hr Administrator Relationship Specialty Start Date End Date Davis Zelaya MD [address] [place], [place] [id number] PCP - General Internal Medicine 02/15/21
--- OUTSIDE RECORDS SUMMARY | 2024-12-17 07:48 | XMS_ITS | Clinical Summary ---
Author Organization [facility] Address [address] [facility] [place] [place] [address] Phone Care Team Providers Care Eligibility Manager Name Role Phone Davis Zelaya MD [...] Comments Blood Pressure 168/73 05/12/2021 5:46 PM CREDIT CARD INTERVIEWER Pulse 80 05/12/2021 5:46 PM CREDIT CARD INTERVIEWER Temperature 36.3 C (97.4 F) 05/12/2021 5:46 PM CREDIT CARD INTERVIEWER Respiratory Rate 16 05/12/2021 5:46 PM CREDIT CARD INTERVIEWER Oxygen Saturation 97% 05/12/2021 5:46 PM CREDIT CARD INTERVIEWER Inhaled Oxygen Concentration - - Weight 78.7 kg (173 lb 6.4 oz) 05/12/2021 12:42 PM CREDIT CARD INTERVIEWER Height 177.8 cm (5' 10) 05/12/2021 12:42 PM CREDIT CARD INTERVIEWER Body Mass Index 24.88 05/12/2021 12:42 PM CREDIT CARD INTERVIEWER Plan of Treatment Health Maintenance Due Date Last Done Comments DTAP/TDAP/TD VACCINES (1 - Tdap) 1966 PNEUMOCOCCAL VACCINE 50+ YEARS (1 of 1 - PCV) 01/22/19 97 ZOSTER VACCINE (1 of 2) 1997 RSV VACCINE (60+ or ) (1 - 1-dose 75+ series) 2022 INFLUENZA VACCINE (#1) 2024 Medical Devices Implanted Type Area Hem Marker Device Identifier Shelf Expiration Date Model / Serial / Lot Pin And 2 Screws Right: Hip Insurance MEDICARE PART A AND B [facility] [place] [address] Advance Directives For more information, please contact: [phone] * Full Code (Latest Code Status on File) Date Activated Date Inactivated Comments 05/12/2021 12:57 PM 05/12/2021 8:00 PM Care Teams Eligibility Manager Relationship Specialty Start Date End Date Davis Zelaya MD [address] [place] [address] PCP - General Internal Medicine 02/14/21
--- OUTSIDE RECORDS SUMMARY | 2024-12-17 07:48 | XMS_ITS | Clinical Summary ---
Author Organization [facility] Address [facility] [place] [address] Care Team Providers Care Field Counsel Name Role Phone Davis Zelaya MD Primary Care Provider [phone] Allergies No known active allergies Medications glimepiride 1 MG tablet Take 1 tablet (1 mg total) by mouth every morning before breakfast. Active metFORMIN 500 MG tablet Take 1 tablet (500 mg total) by mouth daily with breakfast. Active meloxicam (MOBIC) 15 MG tablet Take 1 tablet (15 mg total) by mouth daily for 14 days. 14 tablet 11/06/2024 11/21/19 25 Encounters Date Type Department Care Team Description 11/06/2024 4:25 PM CDT - 11/06/2024 6:35 PM CDT Emergency [facility] [place] [address] Regulo Salinas, DO Back Pain Discharge Disposition: Home or Self Care (Routine Discharge) 11/06/2024 Travel 10/31/2024 2:40 PM CDT - 10/31/2024 4:30 PM CDT [facility] [place] [address] Elver Iraheta, DO Back Pain Discharge Disposition: Home or Self Care (Routine Discharge) 10/31/2024 Travel from Last 3 Months Family History Medical History Relation Comments Heart Disease Father Hyperlipidemia Father Hypertension Father No Known Problems Mother Relation Status Comments Father Mother Social History Tobacco Use Types Packs/Day Years Used Date Smoking Tobacco: Never Smokeless Tobacco: Never Alcohol Use Standard Drinks/Week Comments Yes 0 (1 standard drink = 0.6 oz pur e alcohol) occasion Sex and Gender Information Value Date Recorded Sex Assigned at Male 10/31/2024 3:19 PM CDT Legal Sex Male 8:31 PM CDT Gender Identity Not on file Sexual Orientation Not on file Last Filed Vital Signs Vital Sign Reading Time Taken Comments Blood Pressure 183/79 11/06/2024 6:00 PM CDT Pulse 83 11/06/2024 4:31 PM CDT Temperature 36.1 C (97 F) 11/06/2024 4:31 PM CDT Respiratory Rate 18 11/06/2024 4:31 PM CDT Oxygen Saturation 93% 11/06/2024 6:30 PM CDT Inhaled Oxygen Concentration - - Weight 73.5 kg (162 lb) 11/06/2024 4:31 PM CDT Height 177.8 cm (5' 10) 11/06/2024 4:31 PM CDT Body Mass Index 23.24 11/06/2024 4:31 PM CDT Plan of Treatment Health Maintenance Due Date Last Done Comments Hepatitis C 1963 DTaP, Tdap and Td Vaccines ( 1 - Tdap) 1966 Pneumococcal Vaccine: 50+ Ye ars (1 of 1 - PCV) 1997 Zoster Vaccines (1 of 2) 1997 Annual Medicare Wellness Visit 01/23/2012 RSV Immunization or 60+ Years (1 - 1-dose 75+ series) 2022 COVID-19 Vaccine (2023-2 5 season) 2024 Meningococcal B Vaccine Aged Out No l onger eligible based on patient's age to complete this topic Meningococcal Vaccine Aged Out No jose antonio cherelle eligible based on patient's age to complete this topic RSV Immunizations Under 20 Months Aged Out No longer eligible based on patient's age to complete this topic Procedures Procedure Name Priority Date/Time Associated Diagnosis Comments ORTHOPEDIC INJURY TREATMENT Routine 11/06/2024 7:10 PM CDT HC URINALYSIS AUTO W/MICRO STAT 10/31/2024 3:47 PM CDT from Last 3 Months Results * Orthopedic Injury (11/06/2024 7:10 PM CDT) Narrative Regulo Salinas DO - 11/06/2024 7:10 PM CDT Regulo Salinas DO 11/06/2024 7:16 PM Orthopedic Injury Date/Time: 11/06/2024 7:10 PM Performed by: Regulo Salinas DO Authorized by: Regulo Salinas DO Consent: Consent obtained: Verbal Consent given by: Patient Risks, benefits, and alternatives were discussed: yes Risks discussed: Pain Alternatives discussed: No treatment [place] protocol: Procedure explained and questions answered to patient or proxy's satisfaction: yes Patient identity confirmed: Verbally with patient and hospital-assigned identification number Injury: Injury location: Pelvis Pelvic injury location: Sacrum Pre-procedure details: Distal neurologic exam: Normal Range of motion: reduced Sedation: Sedation type: None Anesthesia: Anesthesia method: None Procedure details: Manipulation performed: yes Post-procedure details: Distal neurologic exam: Normal Range of motion: improved Procedure completion: Tolerated well, no immediate complications Comments: Osteopathic manipulative treatment: Regions treated: 2 (pelvis, sacrum) modality used: Articulation Regulo Salinas DO PROCEDURE/MINOR SURGICAL ORDERAB LES Final Result * (ABNORMAL) URINALYSIS (10/31/2024 3:47 PM CDT) COLOR (U) YELLOW 10/31/2024 4:02 PM CDT [facility] TRANSPARENCY CLEAR 10/31/2024 4:02 PM CDT [facility] SPECIFIC GRAVITY (U) 1.025 1.000 - 1.025 10/31/2024 4:02 PM CDT [facility] U PH 6.0 5.0 - 8.0 10/31/2024 4:02 PM CDT [facility] LEUKOCYTES (U) NEGATIVE NEGATIVE 10/31/2024 4:02 PM CDT [facility] NITRITES NEGATIVE NEGATIVE 10/31/2024 4:02 PM CDT [facility] PROTEIN RANDOM (U) 2+(A) NEGATIVE 10/31/2024 4:02 PM CDT [facility] GLUCOSE (U) 1+(A) NEGATIVE 10/31/2024 4:02 PM CDT [facility] KETONES MG/DL (U) NEGATIVE NEGATIVE 10/31/2024 4:02 PM CDT [facility] UROBILINOGEN 2.0(H) <1.0 EU/DL 10/31/2024 4:02 PM CDT [facility] BILIRUBIN (U) NEGATIVE NEGATIVE 10/31/2024 4:02 PM CDT [facility] BLOOD (U) NEGATIVE NEGATIVE 10/31/2024 4:02 PM CDT [facility] WBC/HPF NONE SEEN(A) 0 - 5 /HPF 10/31/2024 4:02 PM CDT [facility] BACTERIA (U) TRACE /HPF 10/31/2024 4:02 PM CDT [facility] MUCUS PRESENT 10/31/2024 4:02 PM CDT [facility] OTHER CASTS (U) HYALINE /LPF 4:02 PM CDT [facility] Comment:20-50 URINE SPECIMEN OBTAINED BY CLEAN CATCH PROCEDURE / Unknown 10/31/2024 3:47 PM CDT Elver Iraheta DO URINE ORDERABLES Cathy l Result [facility] [address] [place] [address], from Last 3 Months Insurance MEDICARE [facility] Care Teams Field Counsel Relationship Specialty Start Date End Date Davis Zelaya MD [address] [place] [address] PCP - General INTERNAL MEDICINE 01/21/21
--- OUTSIDE RECORDS SUMMARY | 2024-12-17 07:48 | XMS_ITS | Continuity of Care Document ---
Author Organization [facility] Address [address] [place] [address] [place] [address] Phone Care Team Providers Care Machine Stripper Name Role Phone Gokul Dias MD Unavailable [...] Diagnoses Date Provider Providers Copied on Encounter [facility], [address] [place] [address] [address], [place], [place], [id number], [place] tel:[phone] [place] Professional COUNTER CONTROL OPERATOR Complete Exam (chief complaint) Age-related nuclear cataract, bilateralType 2 diabetes mellitus without complicationsV itreous degeneration, left eyeAmblyopia of left eye 0 Arun Hodgson. [address], [facility] [address], [place], [place], [id number], [place]. tel:[phone] Referring Provider: Gokul Calix, [address], [place], [address] . tel:[phone] Family History Family Member Type Diagnosis Age At Onset No Information Payers Payer name Insurance type Covered libertarian ID Authoriza tion(s) Medicare [place] MB [id number] [facility] [id number] Social History Type Description Quantity Date Captured Comments Alcohol Use Details Caffeine Use Details Tobacco Use Status Current non-smoker 20 Smoking Status Never smoker Non-Smoking Tobacco Use Details : No Details Available : No Details Available Sex Male Chief Complaint And Reason For Visit From encounter dated '11/17/2019 08:15'. COUNTER CONTROL OPERATOR Complete Exam (chief complaint). Description: The [...] Date Complaint History Of Prese nt Illness COUNTER CONTROL OPERATOR Complete Exam The 74 year old male presents for evaluation of COUNTER CONTROL OPERATOR Complete Exam in the right eye [...]
== END 2024-12-17 07:45 | disposition home or self-care (01) ==
LOC: CHSIMG 07:46
PROVIDERS: PCP Internal Medicine; Visit Provider Internal Medicine
DX: M25.552 Pain in left hip (principal); M54.16 Radiculopathy, lumbar region; S32.19XA Other fracture of sacrum, initial encounter for closed fracture; S32.592A Other specified fracture of left pubis, initial encounter for closed fracture; M43.06 Spondylolysis, lumbar region; M41.86 Other forms of scoliosis, lumbar region
CPT/HCPCS: 72148; 73721

== ENCOUNTER 2025-01-06 12:11 | Outpatient (CLI) | payer MEDICARE, OTHER, SELFPAY ==
--- NOTE | ~2025-01-06 | DEXA_ITS ---
Bone Density Report Name: BRANDON COX Age: 79 Sex: Male Ethnicity: White Date of : 1945 Indication: screening for osteoporosis; height loss; prior fracture; Referring Provider: Davis Zelaya Study: Bone densitometry was performed. Exam Date: January 06, 2025 Accession number: [id number] Bone Density: Region BMD T-score Z-score Classification AP Spine(L2, L3, L4) 0.794 -2.9 -1.8 Osteoporosis Femoral Neck (Left) 0.389 -4.0 -2.5 Osteoporosis Total Hip (Left) 0.586 -3.0 -2.0 Osteoporosis World Health Organization criteria for BMD impression classify patients as: Normal (T-score at or above -1.0), Osteopenia (T-score between -1.0 and -2.5), or Osteoporosis (T-score at or below -2.5). 10-year Fracture Risk: FRAX not reported because: Some T-score for Spine Total or Hip Total or Femoral Neck at or below -2.5 Clinical Information Provided by Patient: Has had a low trauma fracture Has used the following medications: Vitamin D Patient maximum height was 70.5 No regular weight bearing exercise Does not regularly consume dairy products Impression: The patient has established osteoporosis, based on the Left Femoral Neck T-score and the existence of a prior fracture. The patient has risk factors, including: previous fracture. Discussion: HIGH RISK OF FRACTURE. BONE DENSITY IS UNDESIRABLY LOW AT ONE OR MORE SKELETAL SITES, CONSISTENT WITH OSTEOPOROSIS. This patient's lowest T-score, in a patient who has previously fractured, meets the World Health Organization's (WHO) criteria for severe osteoporosis. In untreated patients, the risk of osteoporotic fracture increases approximately two-fold for each 1.0 SD decrease in T-score. Low bone density is not the only risk factor for fracture; also consider factors such as patient's age, frailty or poor health, risk of falling, risk of injury, previous osteoporotic fracture, family history of osteoporosis, cigarette smoking, low body weight, etc. Not everyone with low bone mineral density has osteoporosis; osteomalacia and other metabolic bone disorders should also be considered. Patients who have osteoporosis should be evaluated for specific diseases and conditions (secondary causes) that may cause or contribute to bone loss. The National Osteoporosis Foundation (NOF) recommends pharmacologic intervention for men with BMD at this level (a T-score of -2.5 or below). The patient should follow a healthful lifestyle (good nutrition with adequate calcium and vitamin D, and appropriate weight-bearing exercise). Follow-Up: Consider repeating this study in 2 years to reassess this patient's status, or sooner if there is some new clinical indication. Reported by: BERHANE on 01/06/2025 12:38:00 PM. Reviewed, dictated and finalized at location A.
--- OUTSIDE RECORDS SUMMARY | 2025-01-06 12:13 | XMS_ITS | Clinical Summary ---
Author Organization [facility] Address [facility] [place] [address] Care Team Providers Care Customer Engagement Manager Name Role Phone Davis Zelaya MD Primary Care Provider [phone] Allergies No known active allergies Medications glimepiride 1 MG tablet Take 1 tablet (1 mg total) by mouth every morning before breakfast. Active metFORMIN 500 MG tablet Take 1 tablet (500 mg total) by mouth daily with breakfast. Active Encounters Date Type Department Care Team Description 11/06/2024 4:25 PM CDT - 11/06/2024 6:35 PM CDT Emergency [facility] [address] [facility] [place] [address] Regulo Salinas, DO Back Pain Discharge Disposition: Home or Self Care (Routine Discharge) 11/06/2024 Travel 10/31/2024 2:40 PM CDT - 10/31/2024 4:30 PM CDT Emergency [facility] [address] [place] [address] [place] [address] Elver Iraheta, DO Back Pain Discharge Disposition: [...] - 1-dose 75+ series) 2022 COVID-19 Vaccine ( - 2023-2 5 season) 2024 Meningococcal B Vaccine Aged [...] Risks discussed: Pain Alternatives discussed: No treatment [place] protocol: Procedure explained and questions answered to [...] COLOR (U) YELLOW 10/31/2024 4:02 PM CDT [facility] TRANSPARENCY CLEAR 10/31/2024 4:02 PM CDT [facility] SPECIFIC GRAVITY (U) 1.025 1.000 - 1.025 10/31/2024 4:02 PM CDT [facility] U PH 6.0 5.0 - 8.0 10/31/2024 4:02 PM CDT [facility] LEUKOCYTES (U) NEGATIVE NEGATIVE 10/31/2024 4:02 PM CDT [facility] NITRITES NEGATIVE NEGATIVE 10/31/2024 4:02 PM CDT [facility] PROTEIN RANDOM (U) 2+(A) NEGATIVE 10/31/2024 4:02 PM CDT [facility] GLUCOSE (U) 1+(A) NEGATIVE 10/31/2024 4:02 PM CDT [facility] KETONES MG/DL (U) NEGATIVE NEGATIVE 10/31/2024 4:02 PM CDT [facility] UROBILINOGEN 2.0(H) <1.0 EU/DL 10/31/2024 4:02 PM CDT [facility] BILIRUBIN (U) NEGATIVE NEGATIVE 10/31/2024 4:02 PM CDT [facility] BLOOD (U) NEGATIVE NEGATIVE 10/31/2024 4:02 PM CDT [facility] WBC/HPF NONE SEEN(A) 0 - 5 /HPF 10/31/2024 4:02 PM CDT [facility] BACTERIA (U) TRACE /HPF 10/31/2024 4:02 PM CDT [facility] MUCUS PRESENT 10/31/2024 4:02 PM CDT [facility] OTHER CASTS (U) HYALINE /LPF 4:02 PM CDT [facility] Comment:20-50 URINE SPECIMEN OBTAINED BY CLEAN CATCH PROCEDURE / Unknown 10/31/2024 3:47 PM CDT us Elver Iraheta DO URINE ORDERABLES Cathy l Result [facility] [address] [place] [address], from Last 3 Months Insurance MEDICARE [facility] Care Teams Customer Engagement Manager Relationship Specialty Start Date End Date Davis Zelaya MD [address] [place] [id number] PCP - General INTERNAL MEDICINE 01/21/21
--- OUTSIDE RECORDS SUMMARY | 2025-01-06 12:14 | XMS_ITS | Clinical Summary ---
Author Organization [facility] [address] [facility] Address [address] [place] [address] Care Team Providers Care Bakery Machine Mechanic Name Role Phone Davis Zelaya MD Primary Care Provider [phone] Social History Tobacco Use Types Packs/Day Years Used Date Smoking Tobacco: Never Assessed Personal Safety Answer Date Recorded Getting School Help Needed Not on file 05/27 Sex and Gender Information Value Date Recorded Sex Assigned at Not on file Legal Sex Male 3:24 PM CDT Gender Identity Not on file Sexual Orientation Not on file Plan of Treatment Not on file Insurance MEDICARE [facility] [place] [address] Care Teams Bakery Machine Mechanic Relationship Specialty Start Date End Date Davis Zelaya MD [address] [place], [place] [id number] PCP - General Internal Medicine 02/15/21
--- OUTSIDE RECORDS SUMMARY | 2025-01-06 12:14 | XMS_ITS | Continuity of Care Document ---
Author Organization [facility] Address [address] [place] [address] [place] [address] Phone Care Team Providers Care Senior Software Quality Analyst Name Role Phone Gokul Dias MD Unavailable [...] Diagnoses Date Provider Providers Copied on Encounter [facility], [address] [place] [address] [address], [place], [place], [id number], [place] tel:[phone] [place] Professional EFFICIENCY CLERK Complete Exam (chief complaint) Age-related nuclear cataract, bilateralType 2 diabetes mellitus without complicationsV itreous degeneration, left eyeAmblyopia of left eye 0 Arun Hodgson. [address], [facility], [place], [place], [id number], [place]. tel:[phone] Referring Provider: Gokul Calix, [address], [place], [address] . tel:[phone] Family History Family Member Type Diagnosis Age At Onset No Information Payers Payer name Insurance type Covered alliance party ID Authoriza tion(s) [place] [id number] [facility] [id number] Social History Type Description Quantity Date Captured Comments Alcohol Use Details Caffeine Use Details Tobacco Use Status Current non-smoker 22 Smoking Status Never smoker Non-Smoking Tobacco Use Details : No Details Available : No Details Available Sex Male Chief Complaint And Reason For Visit From encounter dated '11/17/2019 08:15'. EFFICIENCY CLERK Complete Exam (chief complaint). Description: The 74 [...] Date Complaint History Of Prese nt Illness EFFICIENCY CLERK Complete Exam The 74 year old male presents for evaluation of EFFICIENCY CLERK Complete Exam in the right eye and [...]
--- OUTSIDE RECORDS SUMMARY | 2025-01-06 12:14 | XMS_ITS | Clinical Summary ---
Author Organization [facility] Address [address] [facility] [place] [address] Phone Care Team Providers Care Ripshear Operator Name Role Phone Davis Zelaya MD [...] Comments Blood Pressure 168/73 05/12/2021 5:46 PM SMALL ARMS ARTILLERY REPAIRER Pulse 80 05/12/2021 5:46 PM SMALL ARMS ARTILLERY REPAIRER Temperature 36.3 C (97.4 F) 05/12/2021 5:46 PM SMALL ARMS ARTILLERY REPAIRER Respiratory Rate 16 05/12/2021 5:46 PM SMALL ARMS ARTILLERY REPAIRER Oxygen Saturation 97% 05/12/2021 5:46 PM SMALL ARMS ARTILLERY REPAIRER Inhaled Oxygen Concentration - - Weight 78.7 kg (173 lb 6.4 oz) 05/12/2021 12:42 PM SMALL ARMS ARTILLERY REPAIRER Height 177.8 cm (5' 10) 05/12/2021 12:42 PM SMALL ARMS ARTILLERY REPAIRER Body Mass Index 24.88 05/12/2021 12:42 PM SMALL ARMS ARTILLERY REPAIRER Plan of Treatment Health Maintenance Due Date Last Done Comments DTAP/TDAP/TD VACCINES (1 - Tdap) 1966 PNEUMOCOCCAL VACCINE 50+ YEARS (1 of 1 - PCV) 01/22/19 97 ZOSTER VACCINE (1 of 2) 1997 RSV VACCINE (60+ or ) (1 - 1-dose 75+ series) 2022 INFLUENZA VACCINE (#1) 2024 Medical Devices Implanted Type Area Director Nursing Service Device Identifier Shelf Expiration Date Model / Serial / Lot Pin And 2 Screws Right: Hip Insurance MEDICARE PART A AND B [facility] [id number] Advance Directives For more information, please contact: [phone] * Full Code (Latest Code Status on File) Date Activated Date Inactivated Comments 05/12/2021 12:57 PM 05/12/2021 8:00 PM Care Teams Ripshear Operator Relationship Specialty Start Date End Date Davis Zelaya MD [address] [place] [address] PCP - General Internal Medicine 02/14/21
== END 2025-01-06 12:12 | disposition home or self-care (01) ==
LOC: CHSIMG 12:12
PROVIDERS: PCP Internal Medicine; Visit Provider Internal Medicine
DX: M81.0 Age-related osteoporosis without current pathological fracture (principal)
CPT/HCPCS: 77080